=== PATIENT | female | born 1980 | race Asian ===

== ENCOUNTER 2021-04-01 16:15 | Emergency (ER) | payer OTHER ==
[~2021-04-01] VITALS: Ht 157.5 cm; Wt 58.6 kg
[2021-04-01 16:23] VITALS: BP 122/59
[2021-04-01 18:26] LABS: COVID AG,FIA SOURCE NASOPHARYNGEAL
== END 2021-04-01 18:32 | disposition home or self-care (01) ==
LOC: EMS 16:21
DX: Z20.822 Contact with and (suspected) exposure to COVID-19 (principal); Z88.1 Allergy status to other antibiotic agents
CPT/HCPCS: 87426; 99283; U0003